=== PATIENT | male | born 1990 | race Caucasian/White ===

== ENCOUNTER 2017-01-03 15:39 | Emergency (ER) | payer OTHER ==
[~2017-01-03 15:39] MED LIST: ENDOCET 5-3251 EACH PO; ERGOCALCIF50000 UNIT PO; LOVENOX40 MG/0.4 SC; NEURONTIN600 MG PO; OXYCONTIN10 MG PO; ROXICODONE5 MG PO; SENNA-TIME S T1 EACH PO; THERAGRAN1 TABLET PO
[2017-01-03 16:58] LABS: BASOPHIL COUNT 0.1 K/uL (0-0.1); EOSINOPHIL (%) 0.3 % (0-5); HEMATOCRIT 47.6 % (38.0-50.0); IMMATURE GRANULOCYTE (%) 0.3 % (0.0-0.7); INSTRUMENT ABS NEUTROPHIL CT 5.6 K/uL; LYMPHOCYTE COUNT 2.4 K/uL (1.0-2.8); MCH 32.5 PG (29.0-34.0); MCHC 34.5 G/DL (30.0-36.0); MCV 94.3 FL (86-99); MEAN PLAT.VOLUME 10.6 uM^3 (9.0-12.4); MONOCYTE (%) 9.2 % (3-12); MONOCYTE COUNT 0.8 K/uL (0-0.8); NEUTROPHIL (%) 62.9 % (45-76); NEUTROPHIL COUNT 5.6 K/uL (1.8-6.4); PLATELET COUNT 225 K/uL (156-360); RBC DIS.WIDTH-CV 13.2 % (11.8-14.6); RBC DIS.WIDTH-SD 45.8 % (39-53); RED BLOOD COUNT 5.05 M/uL (4.00-5.50); WHITE BLOOD COUNT 8.9 K/uL (4.1-10.2)
[2017-01-03 17:01] LABS: ADD MIUA? YES; BILIRUBIN NEGATIVE; BLOOD SMALL; COLOR STRAW ((YELLOW)); GLUCOSE (STRIP) NEGATIVE; KETONES NEGATIVE; LEUKOCYTES NEGATIVE; NITRITE NEGATIVE; PROTEIN (STRIP) 30; SPECIFIC GRAVITY 1.013 (1.000-1.030); UROBILINOGEN 0.2 MG/DL (0.2-1.0)
[2017-01-03 17:03] LABS: AMYLASE 40 IU/L (1-118); CHLORIDE 105 mEq/L (99-109); POTASSIUM 3.4 mEq/L (3.7-5.4); SODIUM 141 mEq/L (136-147)
[2017-01-03 17:05] LABS: GLUCOSE 127 mg/dL (70-99)
[2017-01-03 17:06] LABS: ANION GAP 15 MEQ/L (2-14)
[2017-01-03 17:08] LABS: SERUM ETHYL ALCOHOL 197 mg/dL
[2017-01-03 17:09] LABS: GFR ESTIMATE (CALCULATED) > 59 mL/min/
[2017-01-03 17:10] LABS: UREA NITROGEN (BUN) 7 mg/dL (9-23)
[2017-01-03 17:12] LABS: LIPASE 7 U/L (1.0-51.0)
[2017-01-03 17:14] LABS: BACTERIA NONE SEEN /HPF; EPITHELIAL CELLS NONE SEEN /HPF; MUCUS NONE SEEN /LPF; RED BLOOD CELLS 0-5 /HPF (0-5); UCUL ADDED? NO; WHITE BLOOD CELLS 0-5 /HPF (0-5)
[2017-01-03 17:28] LABS: THC CANNABINOIDS PRESUMPTIVE POSITIVE (50 ng/mL)
[2017-01-03 17:29] LABS: ADD MEDTOX COMMENT Y; AMPHETAMINE NEGATIVE (500 ng/mL); BARBITURATES NEGATIVE (200 ng/mL); BENZODIAZEPINES NEGATIVE (150 ng/mL); COCAINE NEGATIVE (150 ng/mL); INTERNAL CONTROLS VALID? YES; METHADONE NEGATIVE (200 ng/mL); METHAMPHETAMINE NEGATIVE (500 ng/mL); OPIATES (MORPHINE) NEGATIVE (100 ng/mL); OXYCODONE NEGATIVE (100 ng/mL); PHENCYCLIDINE NEGATIVE (25 ng/mL); PROPOXYPHENE NEGATIVE (300 ng/mL); TRICYCLIC ANTIDEPRESSANTS NEGATIVE (300 ng/mL)
== END 2017-01-03 17:46 | disposition home or self-care (01) ==
LOC: TRA 15:39
PROVIDERS: Emergency Medicine
DX: M25.532 Pain in left wrist (principal); S50.811A Abrasion of right forearm, initial encounter; F10.129 Alcohol abuse with intoxication, unspecified; Y90.6 Blood alcohol level of 120-199 mg/100 ml; V47.0XXA Car driver injured in collision with fixed or stationary object in nontraffic accident, initial encounter; Y92.410 Unspecified street and highway as the place of occurrence of the external cause
CPT/HCPCS: 70450; 71260; 72125; 73100; 73120; 74177; 80048; 81003; 82150; 83690; 84999; 85025; 86850; 86900; 86901; 99281; 99284; G0480

== ENCOUNTER 2017-07-08 03:14 | Emergency (ER) | payer OTHER ==
[~2017-07-08] VITALS: Ht 177.8 cm; Wt 74.1 kg
[2017-07-08 04:35] VITALS: BP 119/82
== END 2017-07-08 04:35 | disposition home or self-care (01) ==
LOC: EME → EDBD 03:14 → EME 04:35
PROC: 0HQ0XZZ Repair Scalp Skin, External Approach (ICD-10-PCS; principal; 2017-07-08)
DX: S01.01XA Laceration without foreign body of scalp, initial encounter (principal); Y00.XXXA Assault by blunt object, initial encounter; F17.200 Nicotine dependence, unspecified, uncomplicated
CPT/HCPCS: 70450; 99281; 99284

== ENCOUNTER 2017-10-07 22:16 | Emergency (ER) | payer SELFPAY ==
[~2017-10-07] VITALS: Ht 175.3 cm; Wt 69.6 kg
[2017-10-08 07:05] VITALS: BP 107/48
== END 2017-10-08 07:09 | disposition home or self-care (01) ==
LOC: EME 22:16
PROC: 0HQ0XZZ Repair Scalp Skin, External Approach (ICD-10-PCS; principal; 2017-10-08)
PROC: 3E0234Z Introduction of Serum, Toxoid and Vaccine into Muscle, Percutaneous Approach (ICD-10-PCS; principal; 2017-10-08)
DX: S01.01XA Laceration without foreign body of scalp, initial encounter (principal); F10.129 Alcohol abuse with intoxication, unspecified; R45.1 Restlessness and agitation; W22.09XA Striking against other stationary object, initial encounter; Z23 Encounter for immunization; F17.200 Nicotine dependence, unspecified, uncomplicated; Y90.9 Presence of alcohol in blood, level not specified
CPT/HCPCS: 70450; 72125; 99281; 99284; J1200; J1630; J2060